=== PATIENT | female | born 1950 | race Two or more races ===

== ENCOUNTER 2023-11-12 07:30 | Inpatient (IN) | payer OTHER ==
[~2023-11-12] VITALS: Ht 160 cm; Wt 96.6 kg
[2023-11-12] MEDS ORDERED: AVAPRO150 MG PO (10:50)
[2023-11-12] MEDS ORDERED: GLUCOTROL XL5 MG (10:51)
[2023-11-12] MEDS ORDERED: SYNTHROID88 MCG PO (10:52)
[2023-11-12 10:56] LABS: PH,URINE 5.5 (5.0-8.0); URINE APPEARANCE Cloudy; URINE BILIRRUBIN Negative (NEGATIVE); URINE BLOOD Large; URINE COLOR Yellow; URINE GLUCOSE Negative (NEGATIVE); URINE LEUKOCYTE Moderate; URINE NITRATE Positive; URINE UROBILINOGEN 0.2 E.U./dl
[2023-11-12 10:56] LABS: HEMATOCRIT 39.9 % (36.0-45.00); HEMOGLOBIN 13.4 g/dL (12.0-15.00); MEAN CELL VOLUME 95.2 fL (80.00-100.00); MEAN CORPUSCULAR HGB CONC 33.6 g/dl (32.0-36.0); PLATELET COUNT 257 K/uL (150-450); RED BLOOD COUNT 4.19 M/uL (4.00-6.00); RED CELL DISTRIBUTION WIDTH 14.2 % (11.5-14.5)
[2023-11-12 11:00] LABS: URINE EPITHELIAL CELLS 13.9 uL (0.0-38.8); URINE RBC 50.5 uL (0.0-20.8); URINE WBC 1096.2 uL (0.0-23.2)
[2023-11-12 11:05] LABS: URINE BACTERIA > 9821.5 uL (0.0-1933); URINE PROTEIN 100 (NEGATIVE)
[2023-11-12 11:22] LABS: INR 1.02; PARTIAL THROMBOPLASTIN TIME 29.2 SECONDS (22.0-34.0); PROTHROMBIN TIME 10.7 SECONDS (9.0-11.5)
[2023-11-12 11:27] LABS: ALBUMIN 3.5 gm/dL (3.4-5.0); BILIRUBIN TOTAL 0.5 mg/dL (0.3-1.2); CALCIUM 9.7 mg/dL (8.5-10.1); CREATININE SERUM 1.18 mg/dL (0.55-1.02); GFR 45.15; GLOBULINA 2.9 G/DL (2.4-3.5); POTASSIUM 4.54 mEq/L (3.5-5.1); TOTAL PROTEIN 6.4 gm/dL (6.4-8.2)
[2023-11-17 18:13] LABS: HEMOGLOBIN 12.7 g/dL (12.0-15.00); RED BLOOD COUNT 3.92 M/uL (4.00-6.00)
[2023-11-18 06:58] LABS: HEMATOCRIT 37.7 % (36.0-45.00); HEMOGLOBIN 12.7 g/dL (12.0-15.00); MEAN CELL VOLUME 95.1 fL (80.00-100.00); MEAN CORPUSCULAR HEMOGLOBIN 32.2 pg (27.00-32.0); MEAN CORPUSCULAR HGB CONC 33.8 g/dl (32.0-36.0); RED BLOOD COUNT 3.96 M/uL (4.00-6.00); RED CELL DISTRIBUTION WIDTH 14.2 % (11.5-14.5)
[2023-11-18 08:00] LABS: PLATELET COUNT 208 K/uL (150-450)
[2023-11-19] MEDS ORDERED: XARELTO10 MG PO (06:42)
[2023-11-19] MEDS ORDERED: OXYC1TAB9 PO (06:42)
[2023-11-19] MEDS ORDERED: INTEGRA PLUS C1 EACH PO (06:42)
[2023-11-19] MEDS ORDERED: BACTRIM DS TAB1 EACH PO (06:42)
[2023-11-19 08:17] LABS: HEMATOCRIT 33.6 % (36.0-45.00); HEMOGLOBIN 11.4 g/dL (12.0-15.00); MEAN CELL VOLUME 96.7 fL (80.00-100.00); MEAN CORPUSCULAR HEMOGLOBIN 32.8 pg (27.00-32.0); MEAN CORPUSCULAR HGB CONC 33.9 g/dl (32.0-36.0); PLATELET COUNT 195 K/uL (150-450); RED BLOOD COUNT 3.47 M/uL (4.00-6.00); RED CELL DISTRIBUTION WIDTH 14.1 % (11.5-14.5)
== END 2023-11-19 15:59 | DRG 470 ==
LOC: SURH 11-17 07:00 → O/R 11-17 09:21 → SURH 11-17 09:21
PROVIDERS: ADMIT Orthopaedic Surgery Sports Medicine; ATTEND Orthopaedic Surgery Sports Medicine
PROC: 0SRD0JZ Replacement of Left Knee Joint with Synthetic Substitute, Open Approach (ICD-10-PCS; principal; 2023-11-17 07:00)
DX: M17.12 Unilateral primary osteoarthritis, left knee (principal); Z20.822 Contact with and (suspected) exposure to COVID-19